=== PATIENT | male | born 1945 | race Caucasian/White ===

== ENCOUNTER → 2021-05-19 | Outpatient (CLI) | payer OTHER | LOC: EMI 16:00 | DX: R42 Dizziness and giddiness (principal); R41.3 Other amnesia; G93.89 Other specified disorders of brain; I67.82 Cerebral ischemia | CPT/HCPCS: 70551 ==

== ENCOUNTER 2021-09-19 04:48 | Emergency (ER) | payer MEDICARE | END 2021-09-19 09:50 | disposition home or self-care (01) | LOC: ER1 04:48 | DX: S51.012A Laceration without foreign body of left elbow, initial encounter (principal); I10 Essential (primary) hypertension; Z88.0 Allergy status to penicillin; Z88.2 Allergy status to sulfonamides; W01.0XXA Fall on same level from slipping, tripping and stumbling without subsequent striking against object, initial encounter | CPT/HCPCS: 70450; 72125; 72128; 72131; 73080; 73564; 99284 ==